=== PATIENT | male | born 1990 | race Caucasian/White ===

== ENCOUNTER 2018-07-21 07:16 | Inpatient (IN) | payer BC, OTHER ==
[~2018-07-21] VITALS: Ht 190.5 cm; Wt 92.3 kg
[2018-07-21] VITALS (15 sets, daily range): BP systolic 110–159; BP diastolic 62–85; PULSE 77–106; RESP 14–32; Ht 190.5 cm; Wt 92.3 kg
[~2018-07-21 07:16] MED LIST: DESFLURANE 15 MIN ONE; PERCOCET; ROCURONIUM 50 MG INJ ONE; SUCCINYLCHOLINE CHLORIDE 100 MG/5 ML SYG IV ONE; [UNRECOGNIZED DRUG - CODE]
[2018-07-21] MEDS ORDERED: THROMBIN 5000 UNIT VIAL ONE (07:41)
[2018-07-21] MEDS ORDERED: GELATIN SIZE 100 SPONGE ONE (07:41)
[2018-07-21] MEDS ORDERED: BUPIVACAINE 0.5%/EPI (SDV) 30 ML INJ ONE (07:41)
[2018-07-21] MEDS ORDERED: ACET1TAB40 PO (07:42)
[2018-07-21] MEDS ORDERED: POLYMYXIN/BACITRACIN 1L IRRIG ONE ×2 (07:42→15:24)
[2018-07-21] MEDS ORDERED: LIDOCAINE 0.5% (SDV) 50 ML INJ ONE (07:44)
--- NOTE | 2018-07-21 09:42 | PREAC ---
Date/Time of Note Date/Time of Note DATE: 07/21/18 TIME: 09:39 Anesthesia Eval and Record Evaluation Time Pre-Procedure Interview DATE: 07/21/18 TIME: 09:39 Age 27 Sex male NPO: 8 hrs Preoperative diagnosis spinal stenosis Planned procedure Lumard 4 to Sacral one minimally invasicve transforaminal interbody fusion, posterior instrumented fusion Past Medical History Past Medical History: None Surgery & Anesthesia Issues No known issue Meds Anticoagulation: No Beta Tho within 24 hr: No Reason Beta Tho not given: Pt. not on B-Tho Reported Medications Acetaminophen with Codeine (Acetaminophen-Cod #3 Tablet) 1 Each Tablet, 1 TAB PO BID PRN for PAIN, #7 TAB 07/21/18 Discontinued Reported Medications Methylprednisolone* (Medrol*) 2 Mg Tablet 07/02/10 Oxycodone Hcl/Acetaminophen (Percocet) 1 Tab Tab 07/02/10 Meds reviewed: Yes Allergies Coded Allergies: No Known Allergies (Verified Allergy, Mild, 07/21/18) Allergies Reviewed: Yes Labs/Studies Labs Reviewed: Reviewed by anesthesiologist test: N/A Pre-procedure Exam Last vitals Vital Signs Date Temp Pulse Resp B/P (MAP) Pulse Ox O2 O2 Flow FiO2 Time Delivery Rate 07/21/18 96.7 77 16 110/62 98 Room Air 07:56 (78) Airway: Adequate mouth opening, Adequate thyromental dist Mallampati: Mallampati I Teeth: Normal Lung: Normal Heart: Normal ASA Physical Status ASA physical status: 2 Emergency: None Pre-operative Attestations Prior to commencing anesthesia and surgery, the patient was re-evaluated, there was verification of: *The patient's identity *The results of appropriate recent lab work and preoperative vital signs *The above evaluation not changing prior to induction *Anesthetic plan, risk benefits, alternative and complications discussed with patient/family; questions answered; patient/family understands, accepts and wishes to proceed. ELOISE DUQUE DO Jul 21, 2018 09:42
[2018-07-21] MEDS ORDERED: LIDOCAINE 100 MG SYRINGE ONE (09:48)
[2018-07-21] MEDS ORDERED: ROCURONIUM 50 MG INJ ONE (09:48)
[2018-07-21] MEDS ORDERED: SUCCINYLCHOLINE CHLORIDE 100 MG/5 ML SYG IV ONE (09:48)
[2018-07-21] MEDS ORDERED: MIDAZOLAM 1 MG/ML 2 ML INJ ONE (09:48)
[2018-07-21] MEDS ORDERED: PROPOFOL 20 ML ONE (09:48)
[2018-07-21] MEDS ORDERED: ONDANSETRON 4 MG INJ IV PRN ×3 (10:00→22:00)
[2018-07-21] MEDS ORDERED: HYDROmorphONE 1 MG/5 ML IV SYRINGE IV PRN ×2 (10:00)
[2018-07-21] MEDS ORDERED: LABETALOL HCL 20MG INJ IV PRN (10:00)
--- NOTE | 2018-07-21 10:18 | HPN ---
Date/Time of Note Date/Time of Note DATE: 07/21/18 TIME: 10:17 Interval H&P Admission Note Pt. seen H&P reviewed: Systems changes noted below Continued intractable bilateral lower extremity pain, numbness and weakness. RAISA JUSTIN MD Jul 21, 2018 10:18
[2018-07-21] MEDS ORDERED: CEFAZOLIN 1 GM INJ ONE ×2 (10:57→17:14)
[2018-07-21] MEDS ORDERED: DEXAMETHASONE 4 MG/ML 5 ML INJ ONE (12:29)
[2018-07-21] MEDS ORDERED: PHENYLephrine (100 MCG/ML) 5ML SYG ONE (14:38)
[2018-07-21] MEDS ORDERED: FENTAnyl 50 MCG/ML VIAL ONE (16:02)
[2018-07-21] MEDS ORDERED: morphine 10 MG INJ ONE (18:15)
[2018-07-21] MEDS ORDERED: ONDANSETRON 4 MG INJ ONE (18:24)
[2018-07-21] MEDS ORDERED: MAGNESIUM HYDROXIDE 30ML CUP PO PRN (18:30)
[2018-07-21] MEDS ORDERED: AL HYDROX/MG HYDROX/SIMETH 30 ML CUP PO PRN (18:30)
[2018-07-21] MEDS ORDERED: NALOXONE (0.4 MG/ML) INJ IV PRN (18:30)
[2018-07-21] MEDS ORDERED: BISACODYL 10 MG SUPP PR PRN (18:30)
[2018-07-21] MEDS ORDERED: HYDROmorphONE 0.5 MG/0.5 ML SYG IV PRN (18:30)
[2018-07-21] MEDS ORDERED: DIPHENHYDRAMINE 50 MG INJ ONE (18:32)
--- NOTE | 2018-07-21 18:42 | PAC ---
Date/Time of Note Date/Time of Note DATE: 07/21/18 TIME: 18:41 Post-Anesthesia Notes Post-Anesthesia Note Last documented vital signs Vital Signs Date Temp Pulse Resp B/P (MAP) Pulse Ox O2 O2 Flow FiO2 Time Delivery Rate 07/21/18 98 90 18 140/65 98 Room Air 1842 Activity: WNL Respiratory function: WNL Cardiovascular function: WNL Mental status: Baseline Pain reasonably controlled: Yes Hydration appropriate: Yes Nausea/Vomiting absent: Yes ELOISE DUQUE DO Jul 21, 2018 18:42
--- NOTE | 2018-07-21 18:43 | SIPON ---
Date/Time of Note Date/Time of Note DATE: 07/21/18 TIME: 18:40 Operative Report Preoperative Diagnosis Recurrent L4-5 and L5-S1 recurrent HNP (3rd time) L4-5 and L5-S1 lateral recess stenosis L4-5 and L5-S1 facet arthropathy Postoperative Diagnosis Same as above Operation/Procedure Performed Minimally invasive L4-5/L5-S1 transforaminal interbody fusion with posterior instrumented fusion Surgeon see signature line cleaner assistant DIEGO Hartman Anesthesia: general Estimated blood loss: 10 - 50 ml's (50cc) Transfusion Required none Specimen L4-5 and L5-S1 disc herniations Grafts/Implants See op report Complications none RAISA JUSTIN MD Jul 21, 2018 18:43
--- NOTE | 2018-07-21 18:43 | OPR ---
Date/Time of Note Date/Time of Note DATE: 07/21/18 TIME: 18:43 Operative Report Procedure Date: Jul 21, 2018 Preoperative Diagnosis Please see below. Postoperative Diagnosis Please see below. Operation/Procedure Performed Please see below. Surgeon see signature line Sales Consultant Residential Manager DIEGO Hartman Anesthesia Type: general Estimated Blood Loss: 10 - 50 ml's (50cc) Transfusion none Specimen Please see below. Grafts/Implants Please see below. Tubes/Drains None Complications none Pt Condition Post Procedure: stable Disposition: PACU Procedure Description Date of operation: 07/21/2018 Operating surgeon: Sreekanth Almonte M.D. reference assistant: DIEGO Hartman Preoperative diagnosis: 1. Recurrent L4-5 and L5-S1 herniated nucleus pulposus (third time) 2. L4-5 and L5-S1 lateral recess stenosis 3. L4-5 and L5-S1 facet arthropathy Post operative diagnosis: 1. Recurrent L4-5 and L5-S1 herniated nucleus pulposus (third time) 2. L4-5 and L5-S1 lateral recess stenosis 3. L4-5 and L5-S1 facet arthropathy Procedure(s) performed: 1. Minimally invasive right L4 and L5 decompressive hemilaminectomy (more laminectomy performed than would required for a simple transforaminal lumbar interbody arthrodesis) 2. Minimally invasive right total L4-5 and L5-S1 facetectomy for L4-5 and L5-S1 transforaminal lumbar interbody arthrodesis 3. Placement of intervertebral cages at L4-5 and L5-S1 (Wensel Spine expandable titanium lordotic cages, 15 mm height by 28 mm depth at each level) 4. L4-S1 minimally invasive posterior instrumentation (RTI [place] cannulated pedicle screws, 6.5 mm diameter at L4 and L5 and 7.5 mm diameter at S1) 5. L4-S1 posterior arthrodesis 6. Bone marrow aspirate harvest 7. Morselized local autologous bone graft harvest 8. Morselized allograft placement (demineralized bone matrix putty) 9. Intraoperative fluoroscopy with professional interpretation 10. Intraoperative microscope with microdissection 11. Intraoperative neurophysiologic monitoring including SSEP, MEP and EMG testing Indication for procedure: This is a 28-year-old male with a long-standing history of chronic axial low back pain and lower extremity radiating pain and numbness. The patient has already undergone 2 prior lumbar laminectomies and microdiscectomies at L4-5 and L5-S1 levels by other spine surgeons in the past and has had only partial improvement of his lower extremity pain and numbness. In fact, the patient's left lower extremity numbness has remained even after his second operation. The patient now has bilateral lower extremity radiating pain in the L5 and S1 distribution. There is also severe left lower extremity numbness and to a lesser extent right lower mid numbness. The patient has already undergone prior conservative management including physical therapy as well as interventional pain management without improvement of his symptomatology. The patient has also been a longtime user of narcotic medications and has more recently been tapered down on the narcotic medications and been started on Balbuca for detoxification. The risk and benefits of the above operation were explained in detail to the patient and his mother. We also discussed attempting another stand-alone redo laminectomy and microdiscectomy versus redo decompressive surgery with posterior instrumented fusion with the pros and cons of each procedure in detail. The patient and his mother decided to proceed with the decompressive surgery with posterior instrumented fusion. He also understands that he may still continue to have residual pain and numbness even despite the above surgery. The fact that the patient has been using narcotic medications on a chronic basis make his postop recovery also more challenging. He will need to follow-up with his pain management physician on a regular basis and will benefit from postoperative physical therapy. Description of operative procedure: The patient was brought to the operating room and after general anesthesia was obtained, was placed prone on top of the open [place] table. His arms were abducted less than 90 and placed in superman position. All pressure points were noted and padded appropriately. The patient's prior midline lumbar incision was noted. Then vertical paraspinal lumbar lines approximately 4-1/2 cm lateral to midline on each side was marked. After the skin was prepped and draped under standard sterile fashion, the spinal needle was then inserted along the paraspinal lumbar lines under a combination of AP and lateral fluoroscopy and the pedicle entry points from L4-S1 were located. Then incision lines connecting the entry points from L4-S1 was marked on each side. Local anesthetic infiltrated into the marked incisions. The skin was then incised down to the level of the fascia. The Werk[place]oshidi needles were used to cannulate the L4-S1 pedicles under combination of AP and lateral fluoroscopy. When the tip of the Jamshidi needle was at the pedicle vertebral body junction, another AP fluoroscopy was taken to confirm that the medial wall of the pedicles was not breached. Then the Jamshidi needles were slightly advanced into the vertebral body. The Jamshidi needles were pointed towards the sacral promontory at the S1 level. Bone marrow aspirate was then harvested from each of the Jamshidi needles. The Jamshidi needles were then exchanged with K wires. The K wires were then stimulated and all the EMG testing thresholds were greater than 15 mA. Appropriate size adequate screws as noted above were inserted on the left side under direct lateral fluoroscopy. No screws were placed on the right side yet and the K wires were then bent and stapled to the drapes for now. The tube dilators were then inserted over the right L4-5 facet complex under direct lateral fluoroscopy parallel to the L4-5 disc space. The posterior soft tissue was dissected off of the right L4-5 facet complex. The final working tube was then inserted under direct lateral fluoroscopy, medialized and kept parallel to the L4-5 disc space. The tube was then fixed to the table in that position. The operating microscope was brought into the field. The posterior soft tissue was denuded off the right L4-5 facet complex. There was significant L4-5 facet arthropathy and hypertrophy noted. The L4-5 synovium was completely denuded. Using a combination of high-speed drill, Kerrison rongeur and curettes, we performed a total right L4-5 facetectomy and right L4 decompressive hemilaminectomy. All the bone was harvested for later grafting. The right L4-5 foramen was completely unroofed. The exiting right L4 nerve root was kept krotected by its fatty covering. The L4-5 annulus was then located. The annulus was then cut in a box like fashion. The disc prep work was then begun and serial yrn were inserted. There were several very large pieces of loose disc fragment that were noted and removed and sent off the table as specimen. The endplates were then fully decorticated. The disc space was then fully irrigated with antibiotic solution. Various size trials were then inserted and then we decided to use the above size expandable cage. The specialized medial cage retractor and the cage was then inserted and medialized under direct lateral fluoroscopy. Once it was countersunk, the cage was then fully expanded. Then a combination of locally harvested morcellized autologous bone graft, bone marrow aspirate and demineralized bone matrix allograft putty was packed inside the cage with the specialized packing tube. Then the final locking set screw was inserted and tightened over the cage. The cage retractor was removed. The right L4-5 lateral recess and thecal sac were completely decompressed. There was a small area of dural thinning and exposed arachnoid noted. Several pieces of Surgicel were placed over this area. DuraSeal was applied to the dura. Then some of the remaining combination of biologic material was placed over the right L4-5 foramen for posterior arthrodesis. The same set of procedures as L4-5 were then done in order to access the right L5-S1 facet complex. The same set of procedures as L4-5 were done in order to perform a complete right L5-S1 facetectomy and right L5 decompressive hemilaminectomy. All this bone was harvested for later grafting. We also encountered a large disc fragment at L5-S1 and this disc fragment was sent off the table as a specimen. Complete L5-S1 discectomy work and disc prep work was done. After the endplates were decorticated and the disc space was fully irrigated, based on the various sized trials that were used, we decided to also insert the same size expandable cage at the L5-S1 level as L4-5 level. Once the cage was inserted under direct lateral fluoroscopy, medialized and countersunk, it was expanded in a similar fashion as the L4-5 level. The combination of biologic material was also packed into the disc space in a similar fashion as L4-5 level. The locking set screw was then inserted over the cage and tightened. The medial cage insertion retractor was then removed. The lateral recess and the thecal sac at right L5-S1 level was also fully decompressed. The dura was intact. The ned ining amount of DuraSeal was applied to this level as well for hemostasis. The remaining biologic material was placed over the right L5-S1 neural foramen for posterior arthrodesis. Working tube was then removed. The appropriate sized pedicle screws as noted above were also inserted on the right side direct lateral fluoroscopy from L4-S1. Appropriate size lordotic rods were then measured and percutaneously inserted at each site. The set screws were inserted. Compressed at the L4-5 and L5-S1 levels under direct lateral fluoroscopy and the set screws were then fully tightened with the torque and counter torque wrench devices. The pedicle screw posts were then broken off and removed. A final AP and lateral x-rays showed good positioning of the hardware with excellent distraction of the disc spaces. The wounds were copiously irrigated with antibiotic solution. The muscle and fascia layers were then reapproximated with interrupted sutures. The dermal layers were reapproximated with interrupted sutures. The skin was reapproximated with a simple running Rapide 3-0 suture. A sterile dressing was placed on top of each of the incision sites. The patient was then placed supine on the hospital bed. The intraoperative neurophysiologic signals were stable throughout the procedure. The patient was awake and alert and moving his bilateral upper and lower extremities to command in the recovery room. Estimated blood loss: 50 cc Blood products administered: None Packs/drains: None Type of anesthesia: General Incision: Bilateral paraspinal lumbar Skin closure: Simple running Rapide 3-0 suture Wound classification: Clean Specimen removed: L4-5 and L5-S1 disc herniation Patient's condition: Stable Prognosis: Good SREEKANTH ALMONTE MD Jul 21, 2018 18:43
[2018-07-21] MEDS: HYDROmorphONE 1 MG/5 ML IV SYRINGE IV PRN ×3 (18:52→19:04)
[2018-07-21] MEDS: CEFAZOLIN 1 GM/50 ML (PMX) 50 ML IVPB SCH (19:03)
[2018-07-21] MEDS ORDERED: FENTAnyl 50 MCG/ML VIAL IV ONE (19:30)
[2018-07-21] MEDS: HYDROCODONE/APAP (10/325) TAB PO SCH (19:32)
[2018-07-21] MEDS: DOCUSATE SODIUM 100 MG CAP PO SCH (20:58)
[2018-07-21] MEDS: HYDROmorphONE 0.5 MG/0.5 ML SYG IV PRN ×4 (20:58→23:59)
[2018-07-21] MEDS: CYCLOBENZAPRINE 10 MG TAB PO PRN (20:58)
[2018-07-21] MEDS: D5W-0.45 NACL + KCL 20 MEQ 1,000 ML IV SCH (21:01)
[2018-07-21] MEDS: traMADol 50 MG TAB PO PRN (21:21)
--- NOTE | 2018-07-21 21:54 | HP ---
Date/Time of Note Date/Time of Note DATE: 07/21/18 TIME: 21:54 Assessment/Plan VTE Prophylaxis Risk score (from Ns)>0 risk: 2 SCD applied (from Ns): Yes Pharmacological prophylaxis: NA/contraindicated Pharm contraindication: low risk/ambulating Lines/Catheters IV Catheter Type (from Nrsg): Peripheral IV Urinary Cath still in place: Yes Reason Cath still needed: urinary retention (limited mobility secondary to surgery) Assessment/Plan Hospital Course This is a 28-year-old male being admitted to the [facility] for: #1 spinal stenosis/spinal herniation: Patient is postop minimally invasive L4-5/L5-S1 transforaminal interbody fusion with posterior instrumented fusion. He is doing well at the current time. Continue pain management as per neurosurgery, patient to remain lying flat overnight as per neurosurgery recommendations. Patient does have a Reyes catheter in place. Further management as per neurosurgery in the a.m. continue pain management, Decadron as per neurosurgery orders. Continue cefazolin x3 doses. #2 Chin swelling: Likely as a result of prolonged positioning and pressure during surgery. There does appear to be mild serous drainage. At the current time will suggest warm compresses to the area 20 minutes every 2 hours. Will obtain a ultrasound of the chin as well. Consider surgery consultation in the a.m. for possible drainage if no resolution. Monitor for any signs of fever. #3 leukocytosis: Likely stress related/reactive. Patient currently afebrile. Monitor closely. Repeat CBC in the a.m. #4 DVT GI prophylaxis: SCDs, Protonix Further treatment strategy will be implemented as per the clinical course HPI/ROS Admit Date/Time Admit Date/Time Jul 21, 2018 at 07:16 Hx of Present Illness Chief complaint: Left posterior back pain, leg weakness This is a 28-year-old male with a history of spinal stenosis and lumbar disc herniation who presented for elective lumbar spinal fusion. Patient reports th at he has a history of lumbar disc herniations and spinal stenosis from a very young age. He has had 2 previous discectomies/laminectomies. He reports that his symptoms are aggravated over the last few months and he had an MRI in March which did show severe disease of his lumbar spine. Patient followed up with an appointment with Dr. Almonte who recommended a lumbar fusion. Patient is currently postop day 0 of minimally invasive L4-5/L5-S1 transforaminal interbody fusion with posterior instrumented fusion. Patient is postop surgery at the current time he is okay. Allergies: NKDA Medications: None ROS Const: As per HPI Eyes : No pain discharge or redness or change in visual acuity ENT: No pain, sore throat, congestion, congestion, dysphagia or discharge Respiratory: No shortness of breath, cough, sputum, wheezing, or pleuritic pain Cardiovascular: No chest pain, palpitation, PND, or edema GI : no change in appetite, abdominal pain, nausea, vomiting, diarrhea, const ipation, or change in the color his stool Genitourinary: No dysuria, hematuria, flank pain , discharge or CVA tenderness Musculoskeletal: As per HPI Skin: No rash, bruising or hives Neuro: No headache, dizziness, syncope, seizure, focal weakness Endocrine: No polyuria, polydipsia, temperature intolerance Psych: No hallucination, depression, anxiety or suicidal ideation PMH/Family/Social Past Medical History History of spinal stenosis/bulging disc Medications Current Medications Potassium Chloride/Dextrose/ Sod Cl 1,000 ml @ 100 mls/hr Q10H IV Last administered on 07/21/18 21:01; Admin Dose 100 MLS/HR; Start 07/21/18 at 18:14 Acetaminophen/ Hydrocodone Bitart ([place] (10/325)) 2 tab Q6H PO Last administered on 07/21/18at 19:32; Admin Dose 2 TAB; Start 07/21/18 at 18:30 Tramadol HCl (Ultram) 50 mg Q6H PRN PO .PAIN 1-5 Last administered on 07/21/18at 21:21; Admin Dose 50 MG; Start 07/21/18 at 18:30 Cefazolin Sodium 50 ml @ 100 mls/hr Q8H IVPB Last administered on 07/21/18 19:03; Admin Dose 100 MLS/HR; Start 07/21/18 at 18:30; Stop 07/22/18 at 10:59 Ondansetron HCl (Zofran Inj) 4 mg Q6H PRN IV NAUSEA/VOMITING Last administered on 07/21/18at 18:53; Admin Dose 4 MG; Start 07/21/18 at 18:30 Bisacodyl (Dulcolax Supp) 10 mg DAILY PRN [place] .CONSTIPATION; Start 07/21/18 at 18:30 Docusate Sodium (Colace) 100 mg BID PO Last administered on 07/21/18at 20:58; Admin Dose 100 MG; Start 07/21/18 at 21:00 Pantoprazole (Protonix Iv) 40 mg DAILY@06 IV ; Start 07/22/18 at 06:00 Al Hydrox/Mg Hydrox/Simethicone (Mag-Al Plus) 15 ml Q6H PRN PO .CONSTIPATION/DYSPEPSIA; Start 07/21/18 at 18:30 Magnesium Hydroxide (Milk Of Mag) 30 ml HS PRN PO .CONSTIPATION/DYSPEPSIA; Start 07/21/18 at 18:30 Cyclobenzaprine HCl (Flexeril) 10 mg TID PRN PO .MUSCLE SPASMS Last administered on 07/21/18at 20:58; Admin Dose 10 MG; Start 07/21/18 at 18:30 Naloxone HCl (Narcan) 0.2 mg Q2M PRN IV .RR 8 BREATHS/MIN OR LESS; Start 07/21/18 at 18:30 Hydromorphone HCl (Dilaudid) 0.4 mg Q30MIN PRN IV .BREAKTHROUGH PAIN Last administered on 07/21/18at 20:58; Admin Dose 0.4 MG; Start 07/21/18 at 19:00 IV Flush (NS 3 ml) 3 ml PER PROTOCOL IV ; Start 07/21/18 at 22:00 Acetaminophen (Tylenol Tab) 650 mg Q6H PRN PO .PAIN 1-3 OR TEMP; Start 07/21/18 at 22:00 Coded Allergies: No Known Allergies (Verified Allergy, Mild, 07/21/18) Past Surgical History Spinal discectomy/laminectomy x2, spinal fusion Family History Significant Family History: no pertinent family hx Social History Alcohol Use: occasionally Smoking Status: Current some day smoker Drug Use: none Exam/Review of Systems Vital Signs Vitals Vital Signs Date Temp Pulse Resp B/P (MAP) Pulse Ox O2 O2 Flow FiO2 Time Delivery Rate 07/21/18 78 14 150/81 100 Nasal 19:36 (104) Cannula 07/21/18 3.0 19:31 07/21/18 98.5 18:39 Exam Exam General: Patient is a pleasant male currently lying in bed in no acute distress HEENT: Atraumatic, normocephalic. The pupils are equal, round and reactive. Extraocular motor are intact, swelling and mild discomfort of the chin Neck: Supple with full range of motion. No rigidity or meningismus Chest: Nontender Lungs: Clear to auscultation bilaterally no crackles rales or wheezing Heart: Normal S1-S2, Regular rhythm and rate. No murmur, S3, or S4 Abdomen: Soft , nontender, nondistended , bowel sounds are present. No guarding no rebound tenderness , No masses or organomegaly. No costovertebral temporal angle mass Extremities: Normal to inspection, no edema no cyanosis Skin: Multiple tattoos Neurologic: Normal mental status, speech normal, cranial nerves II through XII are intact, motor and sensory are intact, Additional Comments PROCEDURE: Intraoperative imaging of the lumbar spine with fluoroscopy. CLINICAL INDICATION: Back pain. Intraoperative. TECHNIQUE: 26 images of the lumbar spine were obtained in the operating room with an image intensifier. No radiologist was in attendance. Fluoroscopy time is 222 seconds. COMPARISON: No prior study is available for comparison. FINDINGS: For the purposes of this report, the last apparent true disc level is considered to be L5-S1. Based on this, final images demonstrate pedicle screws and connecting rods at L4, L5, S1. Intervertebral cages are also present at L4-5 and L5-S1. IMPRESSION: 1. Intraoperative imaging of the lumbar spine. RPTAT: QQ .Luis Sena MD, Date Time Electronically viewed and signed by .Luis Sena MD, on 07/21/2018 18:31 .R/ CC: RAISA ALMONTE MD [id number] ANANYA NASCIMENTO Jul 21, 2018 21:54
[2018-07-21] MEDS ORDERED: NACL 0.9% 3 ML SYG IV SCH (22:00)
[2018-07-21] MEDS ORDERED: ACETAMINOPHEN 325 MG TAB PO PRN (22:00)
[2018-07-22] MEDS: HYDROCODONE/APAP (10/325) TAB PO SCH ×4 (00:31→18:25)
[2018-07-22] MEDS ORDERED: GABAPENTIN 300 MG CAP PO ONE (01:30)
[2018-07-22] MEDS: HYDROmorphONE 0.5 MG/0.5 ML SYG IV PRN ×10 (01:56→22:50)
[2018-07-22] MEDS: DEXAMETHASONE 4 MG/ML 1 ML INJ IV SCH ×4 (01:56→18:24)
[2018-07-22] MEDS: CEFAZOLIN 1 GM/50 ML (PMX) 50 ML IVPB SCH ×2 (02:40→10:46)
[2018-07-22] MEDS: traMADol 50 MG TAB PO PRN (03:34)
[2018-07-22] MEDS ORDERED: PANTOPRAZOLE 40 MG INJ IV SCH (06:00)
[2018-07-22] MEDS: D5W-0.45 NACL + KCL 20 MEQ 1,000 ML IV SCH ×2 (07:59→14:14)
[2018-07-22 08:05] VITALS: BP 129/83; PULSE 89; RESP 18
[2018-07-22] MEDS: CYCLOBENZAPRINE 10 MG TAB PO PRN ×2 (09:31→21:07)
[2018-07-22] MEDS: GABAPENTIN 300 MG CAP PO SCH ×3 (09:31→21:07)
[2018-07-22] MEDS: DOCUSATE SODIUM 100 MG CAP PO SCH ×2 (09:32→21:07)
--- NOTE | 2018-07-22 13:23 | PN ---
Date/Time of Note Date/Time of Note DATE: 07/22/18 TIME: 13:20 Assessment/Plan VTE Prophylaxis Risk score (from [facility])>0 risk: 2 SCD applied (from [facility]): Yes Pharmacological prophylaxis: NA/contraindicated Pharm contraindication: surgical contra Assessment/Plan Hospital Course #1 spinal stenosis/spinal herniation: Patient is postop minimally invasive L4-5/L5-S1 transforaminal interbody fusion with posterior instrumented fusion Continue pain management as per neurosurgery, patient to remain lying flat overnight as per neurosurgery recommendations Patient does have a Reyes catheter in place Decadron as per neurosurgery orders, cefazolin x3 doses. #2 Chin swelling: Likely as a result of prolonged positioning and pressure during surgery. There does appear to be mild serous drainage Redness and swelling has decreased per patient Continue with warm compresses to the area 20 minutes every 2 hours Status post Ancef Consider surgery consultation in the a.m. for possible drainage if no reso lution. Monitor for any signs of fever. #3 leukocytosis: Likely stress related/reactive. Patient currently afebrile. Monitor closely. Repeat CBC in the a.m. #4 DVT GI prophylaxis: SCDs, Protonix Further treatment strategy will be implemented as per the clinical course Result Diagram: 07/22/18 0422 07/22/18 0422 Results 24hrs Laboratory Tests Test 07/21/18 22:00 07/22/18 04:22 07/22/18 07:01 White Blood Count 11.2 H 11.7 H Red Blood Count 4.73 4.69 L Hemoglobin 13.2 L 13.1 L Hematocrit 39.1 L 39.4 L Mean Corpuscular Volume 82.7 84.0 Mean Corpuscular Hemoglobin 27.9 L 27.9 L Mean Corpuscular 33.8 33.2 Hemoglobin Concent Red Cell Distribution Width 12.5 12.4 Platelet Count 248 254 Mean Platelet Volume 10.3 11.2 H Immature Granulocytes % 0.800 H 0.800 H Neutrophils % 91.4 H 90.3 H Lymphocytes % 5.8 L 6.2 L Monocytes % 1.9 2.5 Eosinophils % 0.0 0.0 Basophils % 0.1 0.2 Nucleated Red Blood Cells % 0.0 0.0 Immature Granulocytes # 0.090 H 0.090 H Neutrophils # 10.3 H 10.6 H Lymphocytes # 0.7 L 0.7 L Monocytes # 0.2 L 0.3 Eosinophils # 0.0 0.0 Basophils # 0.0 0.0 Nucleated Red Blood Cells # 0.0 0.0 Sodium Level 139 139 Potassium Level 4.1 3.8 Chloride Level 102 104 Carbon Dioxide Level 25 27 Anion Gap 12 8 Blood Urea Nitrogen 12 10 Creatinine 0.58 L 0.72 Est Glomerular Filtrat > 60 > 60 Rate mL/min Glucose Level 148 185 Calcium Level 9.3 9.1 Total Bilirubin 0.4 0.5 Direct Bilirubin 0.00 0.00 Indirect Bilirubin 0.4 0.5 Aspartate Amino Transf (AST/SGOT) 41 61 H Alanine 19 20 Aminotransferase (ALT/SGPT) Alkaline Phosphatase 52 52 Total Protein 6.8 6.4 Albumin 4.0 3.7 Globulin 2.80 2.70 Albumin/Globulin Ratio 1.42 1.37 Hemoglobin A1c 5.0 Lab Scanned Report REFERENCE LAB Subjective 24 Hr Interval Summary Skin: erythema (On the chin) Exam/Review of Systems Exam Vitals Vital Signs Date Temp Pulse Resp B/P (MAP) Pulse Ox O2 O2 Flow FiO2 Time Delivery Rate 07/22/18 98.2 89 18 129/83 95 Room Air 08:05 (98) 07/21/18 3.0 19:31 Intake and Output 07/21/18 07/21/18 07/22/18 1414:59 22:59 06:59 IntakeIntake Total 4100 ml 120 ml OutputOutput Total 1100 ml 1400 ml BalanceBalance 3000 ml -1280 ml Constitutional: alert, oriented Respiratory: clear to auscultation Cardiovascular: regular rate and rhythm Gastrointestinal: soft; No distended Musculoskeletal: nl extremities to inspection Results Results 24hrs Laboratory Tests Test 07/21/18 22:00 07/22/18 04:22 07/22/18 07:01 White Blood Count 11.2 H 11.7 H Red Blood Count 4.73 4.69 L Hemoglobin 13.2 L 13.1 L Hematocrit 39.1 L 39.4 L Mean Corpuscular Volume 82.7 84.0 Mean Corpuscular Hemoglobin 27.9 L 27.9 L Mean Corpuscular 33.8 33.2 Hemoglobin Concent Red Cell Distribution Width 12.5 12.4 Platelet Count 248 254 Mean Platelet Volume 10.3 11.2 H Immature Granulocytes % 0.800 H 0.800 H Neutrophils % 91.4 H 90.3 H Lymphocytes % 5.8 L 6.2 L Monocytes % 1.9 2.5 Eosinophils % 0.0 0.0 Basophils % 0.1 0.2 Nucleated Red Blood Cells % 0.0 0.0 Immature Granulocytes # 0.090 H 0.090 H Neutrophils # 10.3 H 10.6 H Lymphocytes # 0.7 L 0.7 L Monocytes # 0.2 L 0.3 Eosinophils # 0.0 0.0 Basophils # 0.0 0.0 Nucleated Red Blood Cells # 0.0 0.0 Sodium Level 139 139 Potassium Level 4.1 3.8 Chloride Level 102 104 Carbon Dioxide Level 25 27 Anion Gap 12 8 Blood Urea Nitrogen 12 10 Creatinine 0.58 L 0.72 Est Glomerular Filtrat > 60 > 60 Rate mL/min Glucose Level 148 185 Calcium Level 9.3 9.1 Total Bilirubin 0.4 0.5 Direct Bilirubin 0.00 0.00 Indirect Bilirubin 0.4 0.5 Aspartate Amino Transf (AST/SGOT) 41 61 H Alanine 19 20 Aminotransferase (ALT/SGPT) Alkaline Phosphatase 52 52 Total Protein 6.8 6.4 Albumin 4.0 3.7 Globulin 2.80 2.70 Albumin/Globulin Ratio 1.42 1.37 Hemoglobin A1c 5.0 Lab Scanned Report REFERENCE LAB Medications Medication Current Medications Potassium Chloride/Dextrose/ Sod Cl 1,000 ml @ 100 mls/hr Q10H IV Last administered on 07/22/18 07:59; Admin Dose 100 MLS/HR; Start 07/21/18 at 18:14 Acetaminophen/ Hydrocodone Bitart ([place] (10/325)) 2 tab Q6H PO Last administered on 07/22/18 12:10; Admin Dose 2 TAB; Start 07/21/18 at 18:30 Tramadol HCl (Ultram) 50 mg Q6H PRN PO .PAIN 1-5 Last administered on 07/22/18 03:34; Admin Dose 50 MG; Start 07/21/18 at 18:30 Ondansetron HCl (Zofran Inj) 4 mg Q6H PRN IV NAUSEA/VOMITING Last administered on 07/21/18 18:53; Admin Dose 4 MG; Start 07/21/18 at 18:30 Bisacodyl (Dulcolax Supp) 10 mg DAILY PRN [place] .CONSTIPATION; Start 07/21/18 at 18:30 Docusate Sodium (Colace) 100 mg BID PO Last administered on 07/22/18 09:32; Ad min Dose 100 MG; Start 07/21/18 at 21:00 Pantoprazole (Protonix Iv) 40 mg DAILY@06 IV Last administered on 07/22/18 06:37; Admin Dose 40 MG; Start 07/22/18 at 06:00 Al Hydrox/Mg Hydrox/Simethicone (Mag-Al Plus) 15 ml Q6H PRN PO .CONSTIPATION/DYSPEPSIA; Start 07/21/18 at 18:30 Magnesium Hydroxide (Milk Of Mag) 30 ml HS PRN PO .CONSTIPATION/DYSPEPSIA; Start 07/21/18 at 18:30 Cyclobenzaprine HCl (Flexeril) 10 mg TID PRN PO .MUSCLE SPASMS Last administered on 07/22/18 09:31; Admin Dose 10 MG; Start 07/21/18 at 18:30 Naloxone HCl (Narcan) 0.2 mg Q2M PRN IV .RR 8 BREATHS/MIN OR LESS; Start at 18:30 Hydromorphone HCl (Dilaudid) 0.4 mg Q30MIN PRN IV .BREAKTHROUGH PAIN Last administered on 07/22/18 10:02; Admin Dose 0.4 MG; Start 07/21/18 at 19:00 IV Flush (NS 3 ml) 3 ml PER PROTOCOL IV ; Start 07/21/18 at 22:00 Acetaminophen (Tylenol Tab) 650 mg Q6H PRN PO .PAIN 1-3 OR TEMP; Start 07/21/18 at 22:00 Gabapentin (Neurontin) 300 mg TID PO Last administered on 07/22/18 09:31; A dmin Dose 300 MG; Start 07/22/18 at 09:00 Dexamethasone (Decadron) 4 mg Q6 IV Last administered on 07/22/18at 12:10; Admin Dose 4 MG; Start 07/22/18 at 01:30; Stop 07/23/18 at 01:30 DONNA HILARIO Jul 22, 2018 13:23
[2018-07-22 22:27] VITALS: BP 128/69; PULSE 89; RESP 20
[2018-07-23] MEDS: DEXAMETHASONE 4 MG/ML 1 ML INJ IV SCH (00:12)
[2018-07-23] MEDS: D5W-0.45 NACL + KCL 20 MEQ 1,000 ML IV SCH ×2 (00:14→10:14)
[2018-07-23] MEDS: HYDROCODONE/APAP (10/325) TAB PO SCH ×3 (00:30→12:53)
[2018-07-23 02:15] VITALS: BP 135/65; PULSE 108; RESP 20
[2018-07-23] MEDS ORDERED: PANTOPRAZOLE (EC) 40 MG TAB PO SCH (06:00)
[2018-07-23 08:07] VITALS: BP 118/58; PULSE 101; RESP 18
--- NOTE | 2018-07-23 08:48 | PN ---
Date/Time of Note Date/Time of Note DATE: 07/23/18 TIME: 08:48 Assessment/Plan VTE Prophylaxis Risk score (from N[facility])>0 risk: 2 SCD applied (from [facility]): Yes Pharmacological prophylaxis: NA/contraindicated Pharm contraindication: low risk/ambulating Lines/Catheters IV Catheter Type (from Nrsg): Peripheral IV Assessment/Plan Assessment/Plan 1. Spinal stenosis/spinal herniation s/p L4-5/L5-S1 transforaminal interbody fusion with posterior instrumented fusion - Dr. Almonte on board and appreciate recommendations. Cleared from his standpoint for discharge with follow up in 2-3 weeks. Instructed to avoid all NSAIDs for at least 3 months 2. Pressure blister on chin - US shows soft tissue swelling - CT pending - Discussed with Neurosurg and states its a common pressure blister given prolonged positioning and pressure during surgery. Patient squeezed the area post op which may have irritated the area leading to infection - Advised to apply a thin layer to Neosporin and will give prophylaxis antibiotics. also advised wet to dry dressings - no fevers appreciated 3. Leukocytosis - most likely reactive 4. Chronic pain - advised to follow up with outpatient pain management 5. Disposition - Medically stable for discharge home Result Diagram: 07/23/18 0436 07/22/18 0422 Results 24hrs Laboratory Tests Test 07/23/18 04:36 White Blood Count 18.4 #H Red Blood Count 4.59 L Hemoglobin 12.7 L Hematocrit 39.3 L Mean Corpuscular Volume 85.6 Mean Corpuscular Hemoglobin 27.7 L Mean Corpuscular Hemoglobin Concent 32.3 Red Cell Distribution Width 13.1 Platelet Count 290 Mean Platelet Volume 10.9 H Immature Granulocytes % 0.900 H Neutrophils % 89.1 H Lymphocytes % 4.3 L Monocytes % 5.6 Eosinophils % 0.0 Basophils % 0.1 Nucleated Red Blood Cells % 0.0 Immature Granulocytes # 0.170 H Neutrophils # 16.4 H Lymphocytes # 0.8 Monocytes # 1.0 H Eosinophils # 0.0 Basophils # 0.0 Nucleated Red Blood Cells # 0.0 Subjective 24 Hr Interval Summary Free Text/Dictation Patient has pain with movement but states hes more concerned about swelling of chin. Discussed with Dr. Almonte who said this is common following prolonged surgery and most likely pressure blister. Discussed plan of care with patient. Exam/Review of Systems Exam Vitals Vital Signs Date Temp Pulse Resp B/P (MAP) Pulse Ox O2 O2 Flow FiO2 Time Delivery Rate 07/23/18 98.1 101 18 118/58 93 Room Air 08:07 (78) 07/21/18 3.0 19:31 Intake and Output 07/22/18 07/22/18 07/23/18 1515:00 23:00 07:00 IntakeIntake Total 1050 ml 1960 ml 420 ml OutputOutput Total 1900 ml BalanceBalance 1050 ml 60 ml 420 ml Exam General: No acute distress. awake and answering questions appropriately HEENT: Atraumatic, normocephalic. PERRL, EOM intact, chin swelling with mild er ythema, no warmth or discharge appreciated Neck: Supple with full range of motion. dressing on right side without discharge or drainage Lungs: Clear to auscultation bilaterally, no wheezing or rhonchi Heart: S1, S2, regular rate and rhythm. no murmurs Abdomen: soft, NT, ND, no rebound or guarding Extremities: Normal to inspection, no edema no cyanosis Skin: erythema chin, serous drainage, no purulent discharge appreciated Results Results 24hrs Laboratory Tests Test 07/23/18 04:36 White Blood Count 18.4 #H Red Blood Count 4.59 L Hemoglobin 12.7 L Hematocrit 39.3 L Mean Corpuscular Volume 85.6 Mean Corpuscular Hemoglobin 27.7 L Mean Corpuscular Hemoglobin Concent 32.3 Red Cell Distribution Width 13.1 Platelet Count 290 Mean Platelet Volume 10.9 H Immature Granulocytes % 0.900 H Neutrophils % 89.1 H Lymphocytes % 4.3 L Monocytes % 5.6 Eosinophils % 0.0 Basophils % 0.1 Nucleated Red Blood Cells % 0.0 Immature Granulocytes # 0.170 H Neutrophils # 16.4 H Lymphocytes # 0.8 Monocytes # 1.0 H Eosinophils # 0.0 Basophils # 0.0 Nucleated Red Blood Cells # 0.0 Medications Medication Current Medications Potassium Chloride/Dextrose/ Sod Cl 1,000 ml @ 100 mls/hr Q10H IV Last administered on 07/22/18at 07:59; Admin Dose 100 MLS/HR; Start 07/21/18 at 18:14 Acetaminophen/ Hydrocodone Bitart ([place] ()) 2 tab Q6H PO Last administered on 07/23/18 05:04; Admin Dose 2 TAB; Start 07/21/18 at 18:30 Tramadol HCl (Ultram) 50 mg Q6H PRN PO .PAIN 1-5 Last administered on 07/22/18 03:34; Admin Dose 50 MG; Start 07/21/18 at 18:30 Ondansetron HCl (Zofran Inj) 4 mg Q6H PRN IV NAUSEA/VOMITING Last administered on 07/21/18 18:53; Admin Dose 4 MG; Start 07/21/18 at 18:30 Bisacodyl (Dulcolax Supp) 10 mg DAILY PRN [place] .CONSTIPATION; Start 07/21/18 at 18:30 Docusate Sodium (Colace) 100 mg BID PO Last administered on 07/22/18 21:07; Admin Dose 100 MG; Start 07/21/18 at 21:00 Al Hydrox/Mg Hydrox/Simethicone (Mag-Al Plus) 15 ml Q6H PRN PO .CONSTIPATION/DYSPEPSIA; Start 07/21/18 at 18:30 Magnesium Hydroxide (Milk Of Mag) 30 ml HS PRN PO .CONSTIPATION/DYSPEPSIA; Start 07/21/18 at 18:30 Cyclobenzaprine HCl (Flexeril) 10 mg TID PRN PO .MUSCLE SPASMS Last administered on 07/22/18 21:07; Admin Dose 10 MG; Start 07/21/18 at 18:30 Naloxone HCl (Narcan) 0.2 mg Q2M PRN IV .RR 8 BREATHS/MIN OR LESS; Start 07/21/18 at 18:30 Hydromorphone HCl (Dilaudid) 0.4 mg Q30MIN PRN IV .BREAKTHROUGH PAIN Last administered on 07/22/18 22:50; Admin Dose 0.4 MG; Start 07/21/18 at 19:00 IV Flush (NS 3 ml) 3 ml PER PROTOCOL IV ; Start 07/21/18 at 22:00 Acetaminophen (Tylenol Tab) 650 mg Q6H PRN PO .PAIN 1-3 OR TEMP; Start 07/21/18 at 22:00 Gabapentin (Neurontin) 300 mg TID PO Last administered on 07/22/18 21:07; Admin Dose 300 MG; Start 3/22/19 at 09:00 Pantoprazole (Protonix Tab) 40 mg DAILY@06 PO Last administered on 07/23/18at 06:56; Admin Dose 40 MG; Start 07/23/18 at 06:00 OLAMIDE HERNANDEZ MD Jul 23, 2018 08:48
[2018-07-23] MEDS: DOCUSATE SODIUM 100 MG CAP PO SCH (08:53)
[2018-07-23] MEDS: HYDROmorphONE 0.5 MG/0.5 ML SYG IV PRN (08:53)
[2018-07-23] MEDS: GABAPENTIN 300 MG CAP PO SCH ×2 (08:53→12:53)
[2018-07-23] MEDS ORDERED: SOD CHLORIDE 0.9% 100 ML ONE (12:09)
[2018-07-23] MEDS ORDERED: IOHEXOL 300MG/ML 150 ML BTL ONE (12:09)
[2018-07-23 14:25] VITALS: BP 122/64; PULSE 80; RESP 18
[2018-07-23] MEDS ORDERED: OXYCODONE/ACETAMINOPHEN (10/325) TAB PO PRN (14:30)
--- NOTE | 2018-07-23 15:06 | PN ---
Date/Time of Note Date/Time of Note DATE: 07/23/18 TIME: 15:05 Copies To: Assessment/Plan Date of progress note: 07/23/2018 The patient is postop day 2 status post minimally invasive L4-5 and L5-S1 translaminar lumbar interbody fusion with posterior instrument fusion for recurrent L4-5 and L5-S1 disc herniations with axial low back pain and lumbar radiculopathy. The patient is overall doing quite well and he is overall very pleased with his overall recovery so far. His postoperative incisional pain is now well controlled with by mouth pain medications including Bricelyn. The patient's preoperative radiating lower extremity pain is near fully resolved bilaterally. The patient's preoperative left lower extremity long-standing numbness has also improved. His axial low back pain is less than his preoperative status. The patient has been ambulating with physical therapy without difficulty. He has been fitted for his LSO brace. He is voiding spontaneously and tolerating by mouth diet. The central line has been removed. The patient developed swelling by his chin that looks like a superficial blister that is likely related to being in prone position despite appropriate padding and the use of the soft foam intraoperatively. The patient tells me that the swelling over his chin significantly diminished since a day and a half ago. There was some initial serosanguineous drainage but the drainage has now near fully subsided. The patient's bilateral lumbar incisions are clean dry and intact with Rapide 3- [address] The patient's chin has a slight swelling without gross erythema or drainage. There is mild to moderate tenderness over the area. The patient is able to move his upper and lower extremities proximally and distally with a motor strength of at least 5- out of 5 to command. Assessment/plan: The patient is postop day 2 status post minimally invasive L4-5 and L5-S1 lumbar instrumented fusion. He continues to be recovering quite well with significant improvement of his preoperative axial low back pain and lumbar radiculopathy. I have given the patient detail instructions for discharge. The patient may shower but he is to keep the incision clean dry and intact right after shower. I would not recommend any invasive intervention for the patient's improving chin blister that will likely resolve within the next few days. I would like the patient to apply Neosporin ointment to his bilateral lumbar incisions as well as his chin twice a day. He is to follow-up with me in clinic in 2-3 weeks. He may ambulate as much as possible. He is to wear the LSO brace when up and ambulating. He is to avoid the use of NSAID medication such as ibuprofen, Motrin, Advil, Aleve etc. for the next 3 months. The patient fully understands the above discussion. The patient may be discharged home from a neurosurgical perspective today. I have also communicated this information to Dr. Jimenes, the patient's hospitalist. RAISA JUSTIN MD Jul 23, 2018 15:06
[2018-07-23] MEDS ORDERED: GABA300C16 PO (16:01)
[2018-07-23] MEDS ORDERED: CEPH500C PO (16:01)
[2018-07-23] MEDS ORDERED: OXYC-431 PO (16:01)
--- NOTE | 2018-07-23 16:10 | PDOCDIS ---
Discharge Instructions DIAGNOSIS Discharge Diagnosis 1. Spinal stenosis/spinal herniation s/p minimally invasive L4-5/L5-S1 transforaminal interbody fusion with posterior instrumented fusion 2. Pressure blister on chin CONDITION [id number] Patient Condition: [id number] Stable HOME CARE INSTRUCTIONS: [id number] Diet Instructions: [id number] Regular FOLLOW UP/APPOINTMENTS Follow-up Plan 1. Follow up with your Primary care physician in 1-2 weeks 2. Follow up with Dr. Almonte in 2-3 weeks as previously discussed. You will need to avoid all NSAIDs (aleve, advil, ibuprofen, motrin, etc) for the next 3 months 3. You will need to wear the LSO brace when up and ambulating 4. For your chin, apply a thin layer of Neosporin twice a day. Do not manipulate area and you can place wet gauze and let dry before removing to help remove any skin cells 5. You can take Keflex twice a day for 5 days given you were experiencing yellow discharge 6. If experiencing any concerning symptoms, please call Dr. Tavarez office or go to your nearest emergency department OLAMIDE HERNANDEZ MD Jul 23, 2018 16:10
[2018-07-23] MEDS ORDERED: CYCL10TA7 PO (17:37)
[2018-07-23] MEDS: traMADol 50 MG TAB PO PRN (18:46)
--- NOTE | 2018-07-23 19:54 | DS ---
Date/Time of Note Date/Time of Note DATE: 07/23/18 TIME: 19:54 Discharge Summary Admission/Discharge Info Admit Date/Time Jul 21, 2018 at 07:16 Discharge Date/Time 07/23/18 Discharge Diagnosis 1. Spinal stenosis/spinal herniation s/p minimally invasive L4-5/L5-S1 transforaminal interbody fusion with posterior instrumented fusion 2. Pressure blister on chin Patient Condition: Stable Consults Neurosurgery- Dr. Almonte Procedures Procedure(s) performed: 1. Minimally invasive right L4 and L5 decompressive hemilaminectomy (more laminectomy performed than would required for a simple transforaminal lumbar interbody arthrodesis) 2. Minimally invasive right total L4-5 and L5-S1 facetectomy for L4-5 and L5-S1 transforaminal lumbar interbody arthrodesis 3. Placement of intervertebral cages at L4-5 and L5-S1 (Wensel Spine expandable titanium lordotic cages, 15 mm height by 28 mm depth at each level) 4. L4-S1 minimally invasive posterior instrumentation (RTI [place] cannulated pedicle screws, 6.5 mm diameter at L4 and L5 and 7.5 mm diameter at S1) 5. L4-S1 posterior arthrodesis 6. Bone marrow aspirate harvest 7. Morselized local autologous bone graft harvest 8. Morselized allograft placement (demineralized bone matrix putty) 9. Intraoperative fluoroscopy with professional interpretation 10. Intraoperative microscope with microdissection 11. Intraoperative neurophysiologic monitoring including SSEP, MEP and EMG norm ting Hx of Present Illness Chief complaint: Left posterior back pain, leg weakness This is a 28-year-old male with a history of spinal stenosis and lumbar disc herniation who presented for elective lumbar spinal fusion. Patient reports that he has a history of lumbar disc herniations and spinal stenosis from a very young age. He has had 2 previous discectomies/laminectomies. He reports that his symptoms are aggravated over the last few months and he had an MRI in March which did show severe disease of his lumbar spine. Patient followed up with an appointment with Dr. Almonte who recommended a lumbar fusion. Patient is currently postop day 0 of minimally invasive L4-5/L5-S1 transforaminal interbody fusion with posterior instrumented fusion. Patient is postop surgery at the current time he is okay. Allergies: NKDA Hospital Course Patient was admitted for close observation and physical therapy following surgical intervention. Patient developed a chin blister given prolonged prone position during surgery with purulent drainage. patient had imaging studies which ruled out abscess and recommended PO antibiotics and topical as well to ensure proper wound healing given patient continues to pick and manipulate area with high risk for infection. Patient progressed well with physical therapy and pain was controlled with PO medications. Patients chin swelling improved and was cleared for discharge from neurosurgical standpoint. Patient was discharged home in stable condition. Home Meds Active Scripts Cyclobenzaprine Hcl* (Cyclobenzaprine Hcl*) 10 Mg Tablet, 10 MG PO TID PRN for .MUSCLE SPASMS for 30 Days, #90 TAB Prov:OLAMIDE HERNANDEZ MD 07/23/18 Cephalexin* (Cephalexin*) 500 Mg Capsule, 500 MG PO BID for 5 Days, #10 CAP Prov:OLAMIDE HERNANDEZ MD 07/23/18 Oxycodone HCl/Acetaminophen (Oxycodone-Acetaminophen 10-325) 1 Each Tablet, 1 TAB PO Q6H PRN for MODERATE PAIN LEVEL 4-6 for 7 Days, #30 TAB Prov:OLAMIDE HERNANDEZ MD 07/23/18 Reported Medications Acetaminophen with Codeine (Acetaminophen-Cod #3 Tablet) 1 Each Tablet, 1 TAB PO BID PRN for PAIN, #7 TAB 07/21/18 Discontinued Reported Medications Methylprednisolone* (Medrol*) 2 Mg Tablet 07/02/10 Oxycodone Hcl/Acetaminophen (Percocet) 1 Tab Tab 07/02/10 Follow-up Plan 1. Follow up with your Primary care physician in 1-2 weeks 2. Follow up with Dr. Almonte in 2-3 weeks as previously discussed. You will need to avoid all NSAIDs (aleve, advil, ibuprofen, motrin, etc) for the next 3 months 3. You will need to wear the LSO brace when up and ambulating 4. For your chin, apply a thin layer of Neosporin twice a day. Do not manipulate area and you can place wet gauze and let dry before removing to help remove any skin cells 5. You can take Keflex twice a day for 5 days given you were experiencing yellow discharge 6. If experiencing any concerning symptoms, please call Dr. Tavarez office or go to your nearest emergency department Primary Care Provider Not On Staff Doctor Time spent on discharge: > 30 minutes Pending Labs Laboratory Tests Test 07/23/18 04:36 White Blood Count 18.4 10^3/ul (4.8-10.8) Red Blood Count 4.59 10^6/ul (4.70-6.10) Hemoglobin 12.7 g/dl (14.0-18.0) Hematocrit 39.3 % (42.0-52.0) Mean Corpuscular Volume 85.6 fl (82.0-101.0) Mean Corpuscular Hemoglobin 27.7 pg (29.0-33.0) Mean Corpuscular Hemoglobin Concent 32.3 g/dl (32.0-37.0) Red Cell Distribution Width 13.1 % (11.5-14.5) Platelet Count 290 10^3/UL (140-415) Mean Platelet Volume 10.9 fl (7.4-10.4) Immature Granulocytes % 0.900 % (0.001-0.429) Neutrophils % 89.1 % (39.0-77.0) Lymphocytes % 4.3 % (15.0-51.0) Monocytes % 5.6 % (0.0-11.0) Eosinophils % 0.0 % (0.0-7.0) Basophils % 0.1 % (0.0-2.0) Nucleated Red Blood Cells % 0.0 /100WBC (0.0-0.0) Immature Granulocytes # 0.170 10^3/ul (0.0-0.031) Neutrophils # 16.4 10^3/ul (1.6-7.5) Lymphocytes # 0.8 10^3/ul (0.8-2.9) Monocytes # 1.0 10^3/ul (0.3-0.9) Eosinophils # 0.0 10^3/ul (0.0-0.5) Basophils # 0.0 10^3/ul (0.0-0.1) Nucleated Red Blood Cells # 0.0 10^3/ul (0.0-0.0) OLAMIDE HERNANDEZ MD Jul 23, 2018 19:54
== END 2018-07-23 19:15 | disposition home or self-care (01) | DRG 455 ==
LOC: REC 07:16 → MS1 20:30
PROVIDERS: ADMIT Neurological Surgery; ATTEND Neurological Surgery
PROC: 0SG0071 Fusion of Lumbar Vertebral Joint with Autologous Tissue Substitute, Posterior Approach, Posterior Column, Open Approach (ICD-10-PCS; 2018-07-21)
PROC: 0SG30AJ Fusion of Lumbosacral Joint with Interbody Fusion Device, Posterior Approach, Anterior Column, Open Approach (ICD-10-PCS; 2018-07-21)
PROC: 0SG3071 Fusion of Lumbosacral Joint with Autologous Tissue Substitute, Posterior Approach, Posterior Column, Open Approach (ICD-10-PCS; 2018-07-21)
PROC: 0SB20ZZ Excision of Lumbar Vertebral Disc, Open Approach (ICD-10-PCS; 2018-07-21)
PROC: 0SB40ZZ Excision of Lumbosacral Disc, Open Approach (ICD-10-PCS; 2018-07-21)
PROC: 01NB0ZZ Release Lumbar Nerve, Open Approach (ICD-10-PCS; 2018-07-21)
PROC: 07DS3ZZ Extraction of Vertebral Bone Marrow, Percutaneous Approach (ICD-10-PCS; 2018-07-21)
PROC: 4A11X4G Monitoring of Peripheral Nervous Electrical Activity, Intraoperative, External Approach (ICD-10-PCS; 2018-07-21)
PROC: 0SG00AJ Fusion of Lumbar Vertebral Joint with Interbody Fusion Device, Posterior Approach, Anterior Column, Open Approach (ICD-10-PCS; principal; 2018-07-21 09:30)
DX: M51.16 Intervertebral disc disorders with radiculopathy, lumbar region (principal); M51.27 Other intervertebral disc displacement, lumbosacral region; M12.88 Other specific arthropathies, not elsewhere classified, other specified site; M48.061 Spinal stenosis, lumbar region without neurogenic claudication; M48.07 Spinal stenosis, lumbosacral region; M79.605 Pain in left leg; M79.604 Pain in right leg; G89.29 Other chronic pain; R20.0 Anesthesia of skin; R53.1 Weakness; F17.200 Nicotine dependence, unspecified, uncomplicated; S00.82XA Blister (nonthermal) of other part of head, initial encounter; X58.XXXA Exposure to other specified factors, initial encounter; Z79.891 Long term (current) use of opiate analgesic
CPT/HCPCS: 70486; 72114; 76536; 80053; 83036; 85025; 86850; 86900; 86901; 87070; 88304; 97110; 97116; 97162; 97530; C1713; C9113; J0690; J1100; J1170; J1200; J2001; J2250; J2270; J2370; J2405; J3010; J3480; Q9967

== ENCOUNTER 2018-12-20 12:20 | Day surgery (SDC) | payer OTHER ==
[~2018-12-20] VITALS: Ht 190.5 cm; Wt 88.4 kg
[~2018-12-20 12:20] MED LIST changes: +ACET1TAB40 PO; +CEPH500C PO; +CYCL10TA7 PO; -DESFLURANE 15 MIN ONE; +FLEXERIL; +GABAPENTIN; +OXYC-282 PO; +OXYC-431 PO; -PERCOCET; -ROCURONIUM 50 MG INJ ONE; -SUCCINYLCHOLINE CHLORIDE 100 MG/5 ML SYG IV ONE; -[UNRECOGNIZED DRUG - CODE]
[2018-12-20 12:51] VITALS: Ht 190.5 cm; Wt 88.4 kg
[2018-12-20 16:43] VITALS: BP 122/73; PULSE 84; RESP 16
== END 2018-12-20 17:25 | disposition home or self-care (01) ==
LOC: GIL 12:20
PROVIDERS: ATTEND Internal Medicine Gastroenterology
DX: R19.4 Change in bowel habit (principal); K64.8 Other hemorrhoids
CPT/HCPCS: 45378; J3010; Z7610